=== PATIENT | female | born 1970 | race Caucasian/White ===

== ENCOUNTER 2024-03-03 06:18 | Day surgery (SDC) | payer OTHER, SELFPAY ==
[2024-02-26 07:13] VITALS: BMI 28.2
[2024-02-26 08:49] LABS: Hematocrit 41.1 % (37.0-47.0); Hemoglobin 14.7 g/dL (12.0-16.0); Mean Corp Hgb Conc. 35.8 g/dL (33.0-37.0); Mean Corpuscular Hgb 29.6 pg (27.0-31.0); Mean Corpuscular Volume 82.7 fL (81.0-99.0); Mean Platelet Volume 9.3 fL (7.4-10.4); Platelet Count 236 10^3/uL (130-400); Red Blood Cell Count 4.97 10^6/uL (4.20-5.40); White Blood Cell Count 5.9 10^3/uL (4.8-10.8)
[2024-02-26 09:14] LABS: ALT (SGPT) 25 U/L (0-35); AST (SGOT) 30 U/L (14-36); Albumin 4.5 g/dl (3.5-5.0); Alkaline Phosphatase 76 U/L (38-126); Blood Urea Nitrogen 17 mg/dl (7-17); Calcium 11.2 mg/dl (8.4-10.2); Carbon Dioxide 27 mmol/L (22-30); Chloride 105 mmol/L (98-107); Estimated Creatinine Clearance 75 ml/min; Glucose 91 mg/dl (70-99); Potassium 4.2 mmol/L (3.5-5.1); Sodium 139 mmol/L (135-145); Total Bilirubin 0.9 mg/dl (0.2-1.3); eGFR > 60.00
[2024-02-26 09:22] LABS: INR 0.91; PT 12.3 Sec (11.4-14.6)
[2024-03-03] VITALS (12 sets, daily range): BP systolic 102–128; BP diastolic 55–83; BMI 28.9
[2024-03-03] MEDS: TYLENOL 1000 MG PO (09:42)
[2024-03-03] MEDS: NEURONTIN 300 MG PO (09:42)
[2024-03-03] MEDS: HEPARIN 5000 UNITS SC (10:28)
[2024-03-03] MEDS: NORMOSOL-R 1000 IV (10:29)
[2024-03-03 12:12] LABS: Turbo PTH 110.7 pg/ml (13.6-85.8)
[2024-03-03 13:06] LABS: Turbo PTH 62.9 pg/ml (13.6-85.8)
--- NOTE | 2024-03-03 13:21 | OR.RPT ---
Operative Report
Operative Report
Patient Name: Marjorie Jesus
Date of : 1970
Date of Operation: March 03, 2024
Preoperative Diagnosis: Parathyroid hyperparathyroidism - E210
Postoperative Diagnosis: Same
Surgeon: Marty Saleh M.D.
Operation: Minimally Invasive Right Superior Parathyroidectomy - 94097
Anesthesia: GET
Estimated Blood Loss: 1 cc
Drains: None
Specimen: Right superior neck nodule, rule out parathyroid adenoma
Complications: None
Procedure:
The patient was taken to the operating room and placed in the usual supine position. After adequate general endotracheal anesthesia was established, the patient's neck was extended, prepped, and draped in the typical sterile fashion. A 4 cm
transcervical incision was made two fingerbreadths above the sternal notch. The skin incision was made with the #15 blade, and this was taken through the skin into the subcutaneous tissue. The underlying platysma muscle was divided, and subplatysmal
flaps were created superiorly to the thyroid cartilage and inferiorly to the sternal notch. Strap muscles were identified and at the midline. Attention was turned to the patient's right side of the neck. The right thyroid lobe was
mobilized medially. During this process, the right recurrent laryngeal nerve was identified and preserved throughout the surgery. The right upper neck nodule was identified and noted to be enlarged, excised, and sent to the pathology department,
which showed a hypercellular parathyroid gland. The normal-appearing right inferior parathyroid gland was identified and preserved. The intraoperative PTH levels normalized. After obtaining adequate hemostasis, the strap muscles were reapproximated
with #3-0 Vicryl in a running fashion. The platysma muscle was reapproximated with #3-0 Vicryl in an interrupted fashion, and the skin was approximated with #4-0 Monocryl in a running subcuticular fashion. The Steri-Strips and sterile dressings were
placed. The patient tolerated the procedure well. The final instrument, needle, and sponge counts were correct. The patient was extubated and transferred to the PACU.
[2024-03-03] MEDS: DILAUDID 0.25 MG IV (13:51)
[2024-03-03] MEDS: ZOFRAN 4 MG IV (14:52)
== END 2024-03-03 15:21 | disposition home or self-care (01) ==
LOC: SDS 06:18
PROVIDERS: ATTENDING PHYSICIAN Surgery; FAMILY PHYSICIAN Family Medicine
DX: E21.0 Primary hyperparathyroidism (principal)
CPT/HCPCS: 60500; 88305; 88332; 36415; 80053; 83970; 85027; 85610; 85730; 88331; 93005